=== PATIENT | male | born 1985 ===

== ENCOUNTER 2021-09-23 19:32 | Emergency (ER) | payer OTHER ==
[~2021-09-23] VITALS: Ht 165.1 cm; Wt 59.0 kg
[2021-09-23] MEDS ORDERED: SPIR50 PO (21:08)
[2021-09-23] MEDS ORDERED: CLIMARA1 EACH PO (21:09)
[2021-09-23] MEDS ORDERED: AMOX250 PO (21:10)
[2021-09-23] MEDS ORDERED: ONDA4 PO (21:10)
[2021-09-23] MEDS ORDERED: BIKTARVY 50-201 EAC1 PO (21:10)
[2021-09-23] MEDS ORDERED: AMOCLA875 PO (21:24)
== END 2021-09-23 21:34 | disposition home or self-care (01) ==
LOC: ER 19:32
DX: B34.9 Viral infection, unspecified (principal); H66.92 Otitis media, unspecified, left ear; Z21 Asymptomatic human immunodeficiency virus [HIV] infection status
CPT/HCPCS: 99282; A9270